=== PATIENT | male | born 1970 | race Caucasian/White ===

== ENCOUNTER 2022-03-29 09:50 | Emergency (ER) | payer SELFPAY ==
[~2022-03-29] VITALS: Ht 162.6 cm; Wt 75.3 kg
--- NOTE | 2022-03-29 09:51 | NUR ---
[id number] [facility] [address], WALKING AT [employer] CUTTING NECK W KNIFE SUPERFICIAL CUTS R SIDE NECK, 5150 HOLD DTS. ALSO REPORTED ETOH BY PARAMEDICS. TO ER BED 15. HOOKED TO MONITOR. TACHY. CHANGED TO HOSP [facility]OWN. CALLED SECURITY FOR WANDING. AWAITING MD DAVIS
[2022-03-29] MEDS ORDERED: LORAZEPAM INJ 2 MG/ML VIAL IM ONE (10:00)
[2022-03-29] MEDS ORDERED: OLANZAPINE 10 MG VIAL IM ONE ×2 (10:00→10:01)
[2022-03-29] MEDS ORDERED: LORAZEPAM INJ 2 MG/ML VIAL ONE (10:02)
--- NOTE | 2022-03-29 10:22 | NUR ---
SECURITY AT BEDSIDE FOR WANDING
[2022-03-29 10:24] LABS: BASOPHILS # (AUTO) 0.1 K/uL (0.0-0.2); BASOPHILS % (AUTO) 0.8 % (0.0-2.0); EOSINOPHILS % (AUTO) 0.6 % (0.0-6.0); HEMATOCRIT 39 % (39-51); HEMOGLOBIN 12.7 g/dL (13.5-17.5); LYMPHOCYTES # (AUTO) 1.6 K/uL (0.8-4.8); LYMPHOCYTES % (AUTO) 18.4 % (20.0-44.0); MEAN CORPUSCULAR HGB CONC 33 g/dl (31.0-36.0); MEAN CORPUSCULAR VOLUME 86 fL (80-96); MONOCYTES # (AUTO) 0.7 K/uL (0.1-1.30); MONOCYTES % (AUTO) 8.1 % (2.0-12.0); NEUTROPHILS # (AUTO) 6.3 K/uL (1.8-8.9); NEUTROPHILS % (AUTO) 72.1 % (43.0-81.0); PLATELET COUNT (AUTO) 267 K/uL (150-450); RED BLOOD CELL COUNT(AUTO) 4.49 MIL/uL (4.5-6.0); WHITE BLOOD COUNT (AUTO) 8.8 K/uL (4.3-11.0)
[2022-03-29 10:34] LABS: CREATININE 0.9 mg/dL (0.6-1.3); POTASSIUM 3.6 mmol/L (3.5-5.1)
[2022-03-29 10:36] LABS: ALBUMIN 3.7 g/dL (3.4-5.0); BILIRUBIN,DIRECT 0.3 mg/dL (0.0-0.2); BILIRUBIN,TOTAL 0.9 mg/dL (0.2-1.0); TOTAL PROTEIN, SERUM 7.7 g/dL (6.4-8.2)
--- NOTE | 2022-03-29 10:50 | NUR ---
URINE COLLECTED VIA STRAIGHT CATHETER, SENT SAMPLE TO LAB
[2022-03-29 11:26] LABS: BILIRUBIN,URINE SMALL (NEGATIVE); COLOR,URINE YELLOW (YELLOW); LEUKOCYTE ESTERASE ,URINE TRACE (NEGATIVE); NITRITE, URINE NEGATIVE (NEGATIVE); PH,URINE 5.5 (5.0-8.0); PROTEIN,URINE TRACE mg/dl (NEGATIVE); UGLUCOSE NEGATIVE (NEGATIVE)
[2022-03-29 11:30] LABS: BACTERIA,URINE None seen /HPF (None Seen); RBC,URINE 0-2 /HPF (0-2); SQUAMOUS EPITHELIAL CELL,UR Rare /HPF (None Seen)
--- NOTE | 2022-03-29 11:47 | NUR ---
PT SLEEPING IN BED, EASILY AROUSABLE
--- NOTE | 2022-03-29 18:56 | NUR ---
CLEARED FOR PSYCH EVAL. CONTACT PSYCH ONCE PATIENT IS AWAKE.
--- NOTE | 2022-03-29 23:13 | NUR ---
Patient is resting comfortably in bed with eyes closed. VSS. will continue to monitor
--- NOTE | 2022-03-30 00:50 | NUR ---
CHRISTIAN HAMMER PAGED FOR PSYCH EVAL
--- NOTE | 2022-03-30 01:42 | NUR ---
PATIENT WAS SEEN AN EVALUATED BY JAQUELIN ERNST FOR DISCHARGE WHEN MEDICALLY STABLE PER MD.
--- NOTE | 2022-03-30 06:47 | NUR ---
PATIENT IS A, OX4, AMBULATOR WITH STEADY GAITS. PO INTAKE TOLERATED WELL. DENIED SI/HI. REORTED FEELING WELL AND AND WILLING TO LEAVE. MD MADE AWARE. MEDICALLY STABLE FOR D/C PER MD. Patient discharged to home in stable condition. Written and verbal after care instructions given. Patient verbalizes understanding of instruction.
[2022-03-30 06:49] VITALS: BP 121/84
== END 2022-03-30 06:50 | disposition home or self-care (01) ==
LOC: ER 09:54
DX: F15.159 Other stimulant abuse with stimulant-induced psychotic disorder, unspecified (principal); R45.851 Suicidal ideations; F15.129 Other stimulant abuse with intoxication, unspecified; F19.10 Other psychoactive substance abuse, uncomplicated; Z59.00 Homelessness unspecified; Z20.822 Contact with and (suspected) exposure to COVID-19; F10.10 Alcohol abuse, uncomplicated
CPT/HCPCS: 36415; 80048; 80076; 80143; 80307; 80320; 81001; 85025; 87426; 96372 ×2; 99285; C9803; J2060; J3490; G0480